=== PATIENT | male | born 2000 | race Two or more races ===

== ENCOUNTER 2021-08-23 17:02 | Emergency (ER) | payer SELFPAY ==
[~2021-08-23] VITALS: Ht 177.8 cm; Wt 86.2 kg
--- NOTE | 2021-08-23 17:56 | NUR ---
Patient states he has had a headache for the last week and needs a note to return to work, refusing testing at this time
--- NOTE | 2021-08-23 18:50 | NUR ---
Patient discharged to home in stable condition. Written and verbal after care instructions given. Patient verbalizes understanding of instructions. Stressed follow up or return to ER for worsening s/s.
[2021-08-23 19:02] VITALS: BP 135/73
== END 2021-08-23 18:40 | disposition home or self-care (01) ==
LOC: ER 17:06
DX: R51.9 Headache, unspecified (principal)
CPT/HCPCS: A4663

== ENCOUNTER 2022-12-13 01:53 | Emergency (ER) | payer OTHER ==
[~2022-12-13] VITALS: Ht 177.8 cm; Wt 86.2 kg
--- NOTE | 2022-12-13 04:09 | NUR ---
Late entry: Patient ambulated into room #2-b, informed of plan of care, awaiting md exam, No s/s of any distress noted, bedside EKG was done for MD review @ 0620, will continue to monitor.
[2022-12-13 04:13] VITALS: BP 106/64
== END 2022-12-13 04:13 | disposition home or self-care (01) ==
LOC: ER 01:53
DX: R07.89 Other chest pain (principal); R11.2 Nausea with vomiting, unspecified; I45.10 Unspecified right bundle-branch block
CPT/HCPCS: 93005; A4663